=== PATIENT | male | born 1950 | race Caucasian/White ===

== ENCOUNTER → 2016-11-05 | Outpatient (REF) | payer BC | LOC: M LAB REF 15:49 | PROVIDERS: ATTEND Emergency Medicine | DX: L02.11 Cutaneous abscess of neck (principal) ==

== ENCOUNTER → 2019-10-08 | Outpatient (CLI) | payer BC ==
--- NOTE | 2019-10-08 11:26 | REP ---
Chest x-ray: Two views. History: Essential hypertension. Findings: The lungs are symmetrically aerated and free of infiltrate. Heart is not enlarged. There is a double density over the right heart border consistent with left atrial enlargement. Pulmonary vasculature is not increased. There are old post-traumatic changes in the right shoulder and degenerative changes are seen bilaterally in the shoulders. No other bony abnormality. Impression: Evidence of left atrial enlargement. Otherwise no active disease. Electronically Signed by Marcelo Wilkinson MD 10/08/2019 08:51 A
== END ==
LOC: M RAD 08:20
PROVIDERS: ATTEND Family Medicine
DX: I10 Essential (primary) hypertension (principal); M19.011 Primary osteoarthritis, right shoulder; M19.012 Primary osteoarthritis, left shoulder

== ENCOUNTER → 2022-09-28 | Outpatient (CLI) | payer MEDICARE | LOC: M RAD 06:51 | PROVIDERS: ATTEND Nurse Practitioner Family | DX: Z87.891 Personal history of nicotine dependence (principal); R14.0 Abdominal distension (gaseous) ==

== ENCOUNTER → 2023-04-05 | Outpatient (CLI) | payer MEDICARE | LOC: M PLAIMG 09:17 | PROVIDERS: ATTEND Registered Nurse | DX: M54.50 Low back pain, unspecified (principal); M51.36 Other intervertebral disc degeneration, lumbar region; M47.816 Spondylosis without myelopathy or radiculopathy, lumbar region; M25.78 Osteophyte, vertebrae; M47.814 Spondylosis without myelopathy or radiculopathy, thoracic region; M41.9 Scoliosis, unspecified ==

== ENCOUNTER → 2023-04-08 | Outpatient (CLI) | payer MEDICARE | LOC: M RAD 16:18 | PROVIDERS: ATTEND Registered Nurse | DX: M47.816 Spondylosis without myelopathy or radiculopathy, lumbar region (principal); M51.36 Other intervertebral disc degeneration, lumbar region; M48.061 Spinal stenosis, lumbar region without neurogenic claudication; M54.50 Low back pain, unspecified; R29.6 Repeated falls ==

== ENCOUNTER → 2024-01-16 | Outpatient (CLI) | payer MEDICARE | LOC: M SLEEP 20:00 | PROVIDERS: ATTEND Physician Assistant | DX: G47.33 Obstructive sleep apnea (adult) (pediatric) (principal); R40.0 Somnolence ==

== ENCOUNTER → 2024-02-16 | Outpatient (CLI) | payer MEDICARE | LOC: M SLEEP 20:00 | PROVIDERS: ATTEND Physician Assistant | DX: G47.33 Obstructive sleep apnea (adult) (pediatric) (principal); G47.61 Periodic limb movement disorder ==

== ENCOUNTER → 2025-02-18 | Outpatient (CLI) | payer MEDICARE | LOC: M PLAIMG 08:03 | PROVIDERS: ATTEND Physician Assistant | DX: I08.3 Combined rheumatic disorders of mitral, aortic and tricuspid valves (principal) ==